=== PATIENT | male | born 1940 | race African-American/Black ===

== ENCOUNTER 2017-06-27 11:06 | Emergency (ER) | payer SELFPAY ==
[~2017-06-27] VITALS: Ht 167.6 cm; Wt 62.0 kg
[2017-06-27 11:59] LABS: HEMATOCRIT 42.4 % (38.0-50.0); MCH 30.6 PG (29.0-34.0); MCHC 32.8 G/DL (30.0-36.0); MCV 93.4 FL (86-99); MEAN PLAT.VOLUME 9.7 uM^3 (9.0-12.4); PLATELET COUNT 213 K/uL (156-360); RBC DIS.WIDTH-CV 13.2 % (11.8-14.6); RBC DIS.WIDTH-SD 45.8 % (39-53); RED BLOOD COUNT 4.54 M/uL (4.00-5.50)
[2017-06-27 12:10] LABS: CHLORIDE 108 mEq/L (99-109); POTASSIUM 4.4 mEq/L (3.7-5.4); SODIUM 139 mEq/L (136-147)
[2017-06-27 12:12] LABS: GLUCOSE 122 mg/dL (70-99)
[2017-06-27 12:13] LABS: ANION GAP 4 MEQ/L (2-14)
[2017-06-27 12:14] LABS: TOTAL BILIRUBIN 0.2 mg/dL (0.0-1.0)
[2017-06-27 12:16] LABS: ALKALINE PHOSPHATASE 101 IU/L (3-129)
[2017-06-27 12:17] LABS: GFR ESTIMATE (CALCULATED) > 59 mL/min/; UREA NITROGEN (BUN) 10 mg/dL (9-23)
[2017-06-27 12:19] LABS: LIPASE 10 U/L (1.0-51.0)
[2017-06-27 18:29] LABS: ADD MIUA? YES; BILIRUBIN NEGATIVE; BLOOD NEGATIVE; COLOR YELLOW ((YELLOW)); GLUCOSE (STRIP) NEGATIVE; KETONES NEGATIVE; LEUKOCYTES NEGATIVE; NITRITE NEGATIVE; PROTEIN (STRIP) 30; SPECIFIC GRAVITY 1.019 (1.000-1.030)
[2017-06-27 18:33] LABS: BACTERIA RARE /HPF; CALCIUM OXALATE CRYSTALS 2+ /HPF; EPITHELIAL CELLS NONE SEEN /HPF; MUCUS TRACE /LPF; RED BLOOD CELLS 0-5 /HPF (0-5); UCUL ADDED? YES
[2017-06-27] MEDS ORDERED: LEVAQUIN750 MG PO (18:51)
[2017-06-27 19:01] VITALS: BP 141/82
== END 2017-06-27 19:09 | disposition home or self-care (01) ==
LOC: EME 11:06
DX: J18.9 Pneumonia, unspecified organism (principal); R10.84 Generalized abdominal pain; I86.1 Scrotal varices; Z87.440 Personal history of urinary (tract) infections; F17.200 Nicotine dependence, unspecified, uncomplicated
CPT/HCPCS: 71020; 74176; 80053; 81003; 83690; 85027; 87086; 99281; 99284